=== PATIENT | female | born 1950 | race Caucasian/White ===

== ENCOUNTER 2022-03-24 15:32 | Emergency (ER) | payer OTHER, MEDICARE ==
[~2022-03-24] VITALS: Ht 177.8 cm; Wt 69.4 kg
== END 2022-03-24 16:25 | disposition home or self-care (01) ==
LOC: ER 15:32
DX: S02.2XXA Fracture of nasal bones, initial encounter for closed fracture (principal); S60.812A Abrasion of left wrist, initial encounter; S60.811A Abrasion of right wrist, initial encounter; S80.212A Abrasion, left knee, initial encounter; S80.211A Abrasion, right knee, initial encounter; W01.0XXA Fall on same level from slipping, tripping and stumbling without subsequent striking against object, initial encounter
CPT/HCPCS: 99283